=== PATIENT | male | born 1970 | race Caucasian/White ===

== ENCOUNTER 2023-11-29 11:51 | Emergency (ER) | payer OTHER, SELFPAY ==
[2023-11-29 12:18] VITALS: BP 149/88; PULSE 84; RESP 16; TEMP 36.4; O2SAT 100
[2023-11-29] MEDS: LIDOCAINE HCL 1% LOCAL INJ 2 ML AMPUL 8 ML INFILTRATE (12:58)
[2023-11-29] MEDS: LIDOCAINE HCL 1% LOCAL INJ 2 ML AMPUL 6 ML INFILTRATE (13:15)
[2023-11-29] MEDS: TETANUS,DIPHTHERIA,AC PERTUSSIS ADULT (0.5 ML) BOOSTRIX IM (13:16)
--- NOTE | 2023-11-29 13:57 | ED.GENADULT ---
HPI - General Adult General Chief complaint: Wound/Laceration Stated complaint: Multiple Abrasions and Wounds Due To Vehicle Source: patient Mode of arrival: ambulatory Limitations: no limitations History of Present Illness HPI narrative: Megan presents for evaluation of skin concerns he has following an injury that occurred just prior to arrival. He was working underneath his truck just [employer]. His truck was not in the parked position. The vehicle begin dragging him against the ground. He was able to get out from under the vehicle without it landing on him or running him over. The running board cut the left side of his chest when he was getting out from under the truck. He now has a laceration to the left side of the chest and road rash to the back and left elbow. He rates his pain as 6/10 in severity and states it is a burning and superficial pain in the area of road rash. He denies any chest pain or shortness of breath. Date of last tetanus approaximately 4-5 years ago. He is not diabetic. He smokes 1 pack per day. Related Data Home Medications Medication Instructions Recorded Confirmed atorvastatin 80 mg tablet 80 mg PO DAILY 11/29/23 11/29/23 hydrochlorothiazide 12.5 mg tablet 12.5 mg PO DAILY 11/29/23 11/29/23 lisinopril 10 mg tablet 10 mg PO DAILY 11/29/23 11/29/23 Allergies Allergy/AdvReac Type Severity Reaction Status Date / Time No Known Allergies Allergy Verified 11/29/23 12:48 Review of Systems Review of Systems: CONSTITUTIONAL: Denies fever, chills, or sweats. EYES: Denies visual changes, redness, or discharge. ENT: Denies rhinorrhea, congestion, sore throat, or otalgia. CARDIOVASCULAR: Denies chest pain, palpitations, or edema. RESPIRATORY: Denies cough or dyspnea. GASTROINTESTINAL: Denies abdominal pain, nausea, vomiting, or diarrhea. GENITOURINARY: Denies dysuria or hematuria. SKIN: Reports road rash to the back/left elbow and a laceration to the left side of his chest MUSCULOSKELETAL: Reports superficial back pain limited to the area of road rash. NEUROLOGIC: Denies headache, numbness, dizziness, or weakness. PSYCHIATRIC: Denies anxiety or depression. 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, [place]) Laceration of chest wall Surgical History Surgical History (Reviewed 11/29/23 @ 14:03 by Reynaldo Portillo [facility], ) No pertinent past surgical history Family History Family History (Reviewed 11/29/23 @ 14:03 by Reynaldo Portillo [facility], ) Mother Unknown family medical history Social History Social History (Reviewed 11/29/23 @ 14:04 by Reynaldo Portillo [facility], ) Smoking packs per day: 1 Smoking cigarettes per day: 20.0 Smoking status: Current every day smoker Tobacco type: cigarettes Substance use: never Living arrangements: with family Gender identity (if verbalized by the patient): Male Sexual Orientation (if Verbalized by the Patient): Straight or Heterosexual Spiritual care concerns: No Exam Narrative: GENERAL: Well-appearing, well-nourished, and in no acute distress. HEAD: Normocephalic, atraumatic. EYES: PERRLA and EOMI. ENT: Nares clear, no rhinorrhea or epistaxis. Mucous membranes moist. Oropharynx without tonsillar hypertrophy exudate or other lesions. Bilateral TMs pearly tirado nonbulging NECK: Supple. No adenopathy or masses. No carotid bruits or JVD CHEST: Clear to auscultation. No respiratory distress. No wheezes rales or rhonchi HEART: Regular rate and rhythm. No murmur heard. Normal peripheral pulses. ABDOMEN: Soft, nontender, nondistended, normal active bowel sounds. EXTREMITIES: Normal range of motion. No edema. SKIN: There is extensive road rash to the back and road rash to the left elbow. There is a 3.5 cm stellate laceration to the left side of his chest. Wound bed red with small amount of sanguinous drainage actively draining from wound NEURO: No focal deficits. Alert and
== END 2023-11-29 14:00 | disposition home or self-care (01) ==
PROVIDERS: Emergency Provider Nurse Practitioner; PCP Family Medicine
DX: S21.112A Laceration without foreign body of left front wall of thorax without penetration into thoracic cavity, initial encounter (principal); S20.419A Abrasion of unspecified back wall of thorax, initial encounter; S50.312A Abrasion of left elbow, initial encounter; V58.2XXA Person on outside of pick-up truck or van injured in noncollision transport accident in nontraffic accident, initial encounter; F17.210 Nicotine dependence, cigarettes, uncomplicated; Z23 Encounter for immunization
CPT/HCPCS: 12002; 90471; 90715; 99203; G0463

== ENCOUNTER 2023-12-06 08:56 | Emergency (ER) | payer OTHER, SELFPAY ==
[2023-12-06 09:06] VITALS: BP 132/78; PULSE 69; RESP 16; TEMP 36.2; O2SAT 100
--- NOTE | 2023-12-06 09:15 | ED.WOUNDLAC ---
HPI - Wound/Laceration General Chief Complaint: Wound/Laceration Stated Complaint: suture removal Time Seen by Provider: 12/06/23 09:10 Source: patient and RN notes reviewed Mode of arrival: ambulatory Limitations: no limitations History of Present Illness HPI narrative: 53-year-old male presents with concern for suture removal. He reports he had for sutures placed in his chest 7 days ago. Reports it is healing well, denies any pain, drainage. Related Data Home Medications Medication Instructions Recorded Confirmed atorvastatin 80 mg tablet 80 mg PO DAILY 11/29/23 12/06/23 hydrochlorothiazide 12.5 mg tablet 12.5 mg PO DAILY 11/29/23 12/06/23 lisinopril 10 mg tablet 10 mg PO DAILY 11/29/23 12/06/23 Allergies Allergy/AdvReac Type Severity Reaction Status Date / Time No Known Allergies Allergy Verified 12/06/23 09:02 Review of Systems Review of Systems: CONSTITUTIONAL: Denies malaise, chills, sweats, or fever. SKIN: Reports healing laceration to the left chest wall MUSCULOSKELETAL: Denies muscle skeletal pain NEUROLOGIC: Denies numbness, weakness All systems reviewed & are unremarkable except as noted in HPI and below PMFSH Past Medical History Medical History (Updated 12/06/23 @ 09:18 by Maria Guadalupe Torres NP) Laceration of chest wall Surgical History Surgical History No pertinent past surgical history Family History Family History Mother Unknown family medical history Social History Social History Smoking packs per day: 1 Smoking cigarettes per day: 20.0 Smoking status: Current every day smoker Tobacco type: cigarettes Substance use: never Living arrangements: with family Gender identity (if verbalized by the patient): Male Sexual Orientation (if Verbalized by the Patient): Straight or Heterosexual Spiritual care concerns: No Comments At time of signature, agree with nursing past medical, surgical, social and family history. There is no relevant family history pertinent to the presenting complaint Exam Narrative: GENERAL: Well-appearing, well-nourished, and in no acute distress. HEAD: Normocephalic EYES: PERRLA, conjunctivae clear NECK: Supple. CHEST: Speaks in full sentences. No respiratory distress. HEART: Regular rate and rhythm. Normal and equal peripheral pulses. SKIN: Scabbed laceration noted to the right chest with 4 intact sutures NEURO: Alert and oriented x3. PSYCH: Normal mood and affect Course Course Emergency Course: Patient is aware of diagnosis, understands and agrees to treatment plan. Anticipatory guidance given. Patient agrees to follow-up as directed and is aware of reasons to seek care at the emergency department. Portions of this record may have been created with voice recognition software Level of Care: Express Care Visit Vital Signs Vital signs: Vital Signs Temperature 97.1 F L 12/06/23 09:06 Pulse Rate 69 12/06/23 09:06 Respiratory Rate 16 12/06/23 09:06 Blood Pressure 132/78 12/06/23 09:06 Pulse Oximetry 100 12/06/23 09:06 Oxygen Delivery Room Air 12/06/23 09:06 Temperature 97.1 F L 12/06/23 09:06 Pulse Rate 69 12/06/23 09:06 Respiratory Rate 16 12/06/23 09:06 Blood Pressure 132/78 12/06/23 09:06 Pulse Oximetry 100 12/06/23 09:06 Oxygen Delivery Room Air 12/06/23 09:06 Reviewed. MDM - Wound/Laceration MDM Narrative Medical decision making narrative: Verbal consent was obtained. Wound well approximated, no erythema, induration, or discharge noted. Four sutures completely removed in a sterile fashion. Patient tolerated procedure well, no complications. Patient advised to look for and return for any signs of infection such as redness, swelling, discharge, or worsening pain. Differential Diagnosis Diffe
== END 2023-12-06 09:22 | disposition home or self-care (01) ==
PROVIDERS: Emergency Provider Nurse Practitioner; PCP Family Medicine
DX: S21.112D Laceration without foreign body of left front wall of thorax without penetration into thoracic cavity, subsequent encounter (principal); X58.XXXD Exposure to other specified factors, subsequent encounter; F17.210 Nicotine dependence, cigarettes, uncomplicated
CPT/HCPCS: 99211; G0463